=== PATIENT | female | born 1925 | race Caucasian/White ===

== ENCOUNTER 2017-05-08 10:21 | Emergency (ER) | payer MEDICARE, OTHER ==
[~2017-05-08] VITALS: Ht 152.4 cm; Wt 71.7 kg
[~2017-05-08 10:21] MED LIST: ALBU8HFA2 INH; AMLO10 PO; ASPI81CH PO; ASPI81EC PO; ATOR10 PO; AZIT250 PO; BENZ100A PO; CALCAVITD PO; CALCIT950 PO; CALGLU500 PO; CEFU250 PO; CENTRUM SILVER1 EAC3 PO; CEPH500 PO; CETI10 PO; CHOL10002 PO; CIPR250 PO; CIPR500 PO; CLON.5 PO; CYAN500 PO; Calcium Citrat250 MG PO; Cipro500 MG PO; DIVA250ER PO; DOCU100 PO; ERGO400 PO; FEXO60 PO; FISH OIL 1,2001 EAC1 PO; FISH1000 PO; GLUCOSAMINE-CH1 EA21 PO; HYDR100 PO; Kristalose20 GM PO; LACT10SY PO; LAMO100 PO; LEVSOD25 PO; LEVSOD75 PO; LINZESS145 MCG PO; LISI10 PO; LOSA50 PO; LOSARTAN POTAS100 MG PO; METF500 PO; METO25 PO; METR500 PO; MIRT15ST MM; MIRT30 PO; MULVITA PO; MULVITMINF PO; Macrobid 100 M100 MG PO; Miralax17 GM PO; NAPR220 PO; OMEP20ER PO; OMEPRAZOLE MAGN20 MG PO; ONDA4ODT MM; PHENA100 PO; PHENA200 PO; POLY500 PO; POTA10T PO; POTA20PAC PO; POTCHL20ER PO; Pyridium100 MG PO; ROSU10TA PO; SERT50 PO; TAMO20 PO; TRAZ100 PO; TRAZ50 PO; VITAMIN D32000 UNI1 PO; [UNRECOGNIZED DRUG - OTHER] PO
[2017-05-08 11:37] LABS: BASOPHILS ABSOLUTE AUTO 0.02 K/mm3 (0.00-0.23); BASOPHILS PERCENT AUTO 0 % (0-2); EOSINOPHILS PERCENT AUTO 1 % (0-6); Hematocrit 39.1 % (33.0-51.0); Hemoglobin 13.1 g/dL (11.5-16.0); IMMATURE GRAN ABSOLUTE AUTO 0.02 K/mm3 (0.00-0.10); IMMATURE GRAN PERCENT AUTO 0 % (0-1); LYMPHOCYTES ABSOLUTE AUTO 2.39 K/mm3 (0.84-5.20); LYMPHOCYTES PERCENT AUTO 25 % (21-46); MONOCYTES ABSOLUTE AUTO 0.71 K/mm3 (0.16-1.47); MONOCYTES PERCENT AUTO 7 % (4-13); Mean Corpuscular HGB 31.1 pg (26.0-34.0); Mean Corpuscular HGB Conc 33.5 g/dL (31.5-36.5); Mean Corpuscular Volume 93 fL (80-100); Mean Platelet Volume 9.1 fL (9.1-12.4); NEUTROPHILS ABSOLUTE AUTO 6.37 K/mm3 (1.96-9.15); NEUTROPHILS PERCENT AUTO 66 % (41-73); Platelet Count 240 K/mm3 (150-400); RDW Coefficient Variation 12.9 % (11.7-14.2); Red Blood Cell Count 4.21 M/mm3 (3.80-5.20); White Blood Cell Count 9.61 K/mm3 (4.00-11.30)
[2017-05-08 11:57] LABS: Albumin, Blood 3.6 g/dL (3.4-5.0); Albumin/Globulin Ratio 1.2 (0.8-1.8); Bilirubin, Total 0.7 mg/dL (0.1-1.0); Bun/Creatinine Ratio 9.4 (12.0-20.0); Calcium, Blood 9.1 mg/dL (8.5-10.1); Creatinine, Blood 0.96 mg/dL (0.40-1.00); Potassium, Blood 4.1 mmol/L (3.5-5.5); Total Protein, Blood 6.6 g/dL (6.4-8.2)
[2017-08-12] MEDS ORDERED: DONE5 PO (14:43)
[2017-08-12] MEDS ORDERED: LEVSOD75 PO (14:47)
[2017-11-14] MEDS ORDERED: Ducodyl5 MG PO (21:08)
[2017-11-14] MEDS ORDERED: CEPH500 PO (21:08)
[2017-11-14] MEDS ORDERED: HYDCOR2.5C PR (21:08)
== END 2017-05-08 13:44 | disposition home or self-care (01) ==
LOC: ER 10:21
PROVIDERS: Emergency Medicine
DX: K92.1 Melena (principal); I10 Essential (primary) hypertension; E11.9 Type 2 diabetes mellitus without complications; F32.9 Major depressive disorder, single episode, unspecified; Z85.3 Personal history of malignant neoplasm of breast; Z88.2 Allergy status to sulfonamides; Z79.899 Other long term (current) drug therapy; Z79.84 Long term (current) use of oral hypoglycemic drugs; Z87.891 Personal history of nicotine dependence
CPT/HCPCS: 36415; 80053; 82272; 85025; 86850; 86900; 86901; 93005; 93010; 99284